=== PATIENT | female | born 1970 | race Caucasian/White ===

== ENCOUNTER 2020-12-19 14:44 | Emergency (ER) | payer OTHER ==
[~2020-12-19 14:44] MED LIST: IBUPROFEN800 MG PO; TRAMADOL HCL50 MG PO
[2020-12-19 17:24] LABS: BASOPHIL 0.4 % (0-2); BILIRUBIN NEGATIVE (NEGATIVE); BLOOD 1+ Ery/uL (NEGATIVE); CLARITY CLEAR (CLEAR); COLOR YELLOW (YELLOW); EOSINOPHIL 1.2 % (0-5); GLUCOSE (U) NORMAL (NORMAL); HCT 48.8 % (37.0-47.0); HGB 16.2 g/dl (12.5-16.0); LEUKOCYTES NEGATIVE Leu/uL (NEGATIVE); LYMPHOCYTE 30.3 % (15-48); MCH 29.6 pg (25.0-31.0); MCHC 33.2 g/dL (32.0-36.0); MCV 89.1 fL (78.0-100.0); MONOCYTE 4.8 % (0-12); MPV 10.2 fL (6.0-9.5); NEUTROPHIL 62.9 % (41-80); NITRITE NEGATIVE (NEGATIVE); NRBC 0; PLT 297 K/uL (150-400); PROTEIN NEGATIVE (NEGATIVE); RBC 5.48 M/uL (4.20-5.40); RDW 13.2 % (11.5-14.0); UROBILINOGEN 0.2 mg/dL (0.2-1.0); WBC 10.3 K/uL (4.0-10.5); pH 5.5 (5.0-9.0)
[2020-12-19 17:32] LABS: SQUAMOUS EPITHELIAL CELLS RARE
[2020-12-19] MEDS ORDERED: TRAMADOL HCL50 MG PO (17:54)
[2020-12-19] MEDS ORDERED: ONDANSETRON ODT4 MG PO (17:54)
[2020-12-19 17:57] LABS: ALBUMIN 3.6 g/dL (3.4-5.0); BILIRUBIN - TOTAL 0.3 mg/dL (0.2-1.0); BUN/CREAT RATIO (CALC) 14.3 RATIO; CREATININE 0.77 mg/dL (0.51-0.95); GLOBULIN (CALCULATION) 4.6 g/dL; POTASSIUM 4.1 mmol/L (3.5-5.1); TOTAL PROTEIN 8.2 g/dL (6.4-8.2)
[2020-12-31] MEDS ORDERED: ZOFRAN4 M1 PO (11:20)
[2020-12-31] MEDS ORDERED: PERCOCET 5-3251 EACH PO (11:20)
== END 2020-12-19 18:50 | disposition home or self-care (01) ==
LOC: FER 14:44
PROVIDERS: Emergency Medicine
DX: R10.31 Right lower quadrant pain (principal); R11.0 Nausea; Z90.710 Acquired absence of both cervix and uterus; Z98.51 Tubal ligation status; Z87.891 Personal history of nicotine dependence
CPT/HCPCS: 36415; 80053; 81001; 82150; 83690; 85025; J1885; J2405; J3360

== ENCOUNTER → 2020-12-31 | Day surgery (SDC) | payer OTHER ==
[~2020-12-31] MED LIST changes: +BENTYL10 MG PO; +MEDROL 4MG DOSEP4 MG PO; +NORCO 5-325 TA1 EACH PO; +ONDANSETRON ODT4 MG PO; +PERCOCET 5-3251 EACH PO; +ROBAXIN750 MG PO; +ZOFRAN4 M1 PO
== END | disposition home or self-care (01) ==
LOC: FAS 08:01
DX: K80.10 Calculus of gallbladder with chronic cholecystitis without obstruction (principal); E66.9 Obesity, unspecified; J30.2 Other seasonal allergic rhinitis; Z68.39 Body mass index [BMI] 39.0-39.9, adult; Z87.891 Personal history of nicotine dependence; Z20.822 Contact with and (suspected) exposure to COVID-19
CPT/HCPCS: 93005; J0694; J1100; J1170; J1885; J2250; J2405; J2704; J2710; J3010; J7120; U0002

== ENCOUNTER → 2021-02-10 | Day surgery (SDC) | payer OTHER | END | disposition home or self-care (01) | LOC: FAS 09:46 | DX: K63.5 Polyp of colon (principal); K64.8 Other hemorrhoids; K64.4 Residual hemorrhoidal skin tags; K80.20 Calculus of gallbladder without cholecystitis without obstruction; Z20.822 Contact with and (suspected) exposure to COVID-19; Z90.49 Acquired absence of other specified parts of digestive tract; Z87.19 Personal history of other diseases of the digestive system; Z87.891 Personal history of nicotine dependence | CPT/HCPCS: J2704; J7120 ==

== ENCOUNTER 2021-03-25 20:58 | Emergency (ER) | payer OTHER ==
[~2021-03-25 20:58] MED LIST changes: -BENTYL10 MG PO; -MEDROL 4MG DOSEP4 MG PO; -NORCO 5-325 TA1 EACH PO; -ROBAXIN750 MG PO
[2021-03-25 22:31] LABS: BASOPHIL 0.3 % (0-2); HCT 43.6 % (37.0-47.0); HGB 15.2 g/dl (12.5-16.0); LYMPHOCYTE 37.1 % (15-48); MCH 30.2 pg (25.0-31.0); MCHC 34.9 g/dL (32.0-36.0); MCV 86.5 fL (78.0-100.0); MONOCYTE 6.2 % (0-12); MPV 10.3 fL (6.0-9.5); NEUTROPHIL 54.2 % (41-80); NRBC 0; PLT 274 K/uL (150-400); RBC 5.04 M/uL (4.20-5.40); RDW 13.6 % (11.5-14.0); WBC 10.5 K/uL (4.0-10.5)
[2021-03-25 22:46] LABS: ALBUMIN 3.2 g/dL (3.4-5.0); BILIRUBIN - TOTAL 0.1 mg/dL (0.2-1.0); BUN/CREAT RATIO (CALC) 15.3 RATIO; CREATININE 0.72 mg/dL (0.51-0.95); GLOBULIN (CALCULATION) 4.1 g/dL; POTASSIUM 3.6 mmol/L (3.5-5.1); TOTAL PROTEIN 7.3 g/dL (6.4-8.2)
[2021-03-26] MEDS ORDERED: NORCO 5-325 TA1 EACH PO (01:55)
[2021-03-26] MEDS ORDERED: ROBAXIN750 MG PO (01:55)
[2021-03-26] MEDS ORDERED: MEDROL 4MG DOSEP4 MG PO (01:55)
[2021-03-26] MEDS ORDERED: BENTYL10 MG PO (01:56)
[2021-03-26 02:17] LABS: BILIRUBIN NEGATIVE (NEGATIVE); BLOOD 1+ Ery/uL (NEGATIVE); CLARITY CLEAR (CLEAR); COLOR YELLOW (YELLOW); GLUCOSE (U) NORMAL (NORMAL); LEUKOCYTES NEGATIVE Leu/uL (NEGATIVE); NITRITE NEGATIVE (NEGATIVE); PROTEIN NEGATIVE (NEGATIVE); UROBILINOGEN 0.2 mg/dL (0.2-1.0)
[2021-03-26 02:22] LABS: BACTERIA TRACE; SQUAMOUS EPITHELIAL CELLS RARE; URINARY RBC RARE
== END 2021-03-26 02:10 | disposition home or self-care (01) ==
LOC: FER 20:58
PROVIDERS: Emergency Medicine Emergency Medical Services
DX: R10.9 Unspecified abdominal pain (principal); Z90.49 Acquired absence of other specified parts of digestive tract; Z90.710 Acquired absence of both cervix and uterus
CPT/HCPCS: 36415; 80053; 81001; 83605; 83690; 85025; 99284; J1100; J1170; J1885; J2405; J2800; J7050

== ENCOUNTER 2022-04-28 20:50 | Emergency (ER) | payer OTHER ==
[~2022-04-28 20:50] MED LIST changes: +BENTYL10 MG PO; +MEDROL 4MG DOSEP4 MG PO; +NORCO 5-325 TA1 EACH PO; +ROBAXIN750 MG PO
== END 2022-04-28 22:00 | disposition home or self-care (01) ==
LOC: FER 20:50
DX: S61.217A Laceration without foreign body of left little finger without damage to nail, initial encounter (principal); F17.210 Nicotine dependence, cigarettes, uncomplicated; K21.9 Gastro-esophageal reflux disease without esophagitis; Z23 Encounter for immunization; Z79.899 Other long term (current) drug therapy; W45.8XXA Other foreign body or object entering through skin, initial encounter; Y92.009 Unspecified place in unspecified non-institutional (private) residence as the place of occurrence of the external cause
CPT/HCPCS: 90471; 90715; 99283